=== PATIENT | female | born 1990 | race Caucasian/White ===

== ENCOUNTER 2018-08-24 09:16 | Outpatient (CLI) | payer OTHER ==
--- NOTE | 2018-08-24 10:48 | RAD ---
RIGHT FIFTH DIGIT THREE VIEWS: HISTORY: Pain. Slammed hand in door Wednesday. FINDINGS: Joint spaces are preserved. No fracture. No cortical irregularity or periosteal reaction. No radio paque foreign body or significant soft tissue swelling. IMPRESSION: No posttraumatic change. POS: [facility]
--- NOTE | 2018-08-24 10:51 | RAD ---
RIGHT FOOT THREE VIEWS: HISTORY: Persistent pain. Sprain seven weeks ago. COMPARISON: None. FINDINGS: Lisfranc alignment is maintained. Joint spaces are preserved. No fracture. No cortical irregularit y or periosteal reaction. IMPRESSION: Unremarkable three views right foot. No posttraumatic change. POS: [facility]
== END 2018-08-24 09:17 | disposition home or self-care (01) ==
LOC: SCSRAD 09:16
PROVIDERS: ATTEND Family Medicine
DX: M79.671 Pain in right foot (principal)

== ENCOUNTER 2019-09-22 14:53 | Outpatient (CLI) | payer BC ==
--- NOTE | 2019-09-22 15:36 | RAD ---
LUMBAR SPINE SERIES THREE VIEWS: 09/22/19 HISTORY: Chronic back pain extending down into the legs. Vertebral bodies are normal in height. Disc spaces are all well preserved. Pedicles are intact. No sp ondylolisthesis. IMPRESSION: Unremarkable lumbar spine series. POS: [facility]
--- NOTE | 2019-09-22 15:37 | RAD ---
CERVICAL SPINE SERIES THREE VIEWS: 09/22/19 HISTORY: Chronic neck pain. Vertebral bodies are normal in height. Disc spaces are all well preserved and facets are in normal al ignment. No soft tissue swelling. IMPRESSION: Unremarkable cervical spine series. POS: [facility]
== END 2019-09-22 14:54 | disposition home or self-care (01) ==
LOC: SCSRAD 14:53
PROVIDERS: ATTEND Internal Medicine Rheumatology
DX: M54.2 Cervicalgia (principal); M54.89 Other dorsalgia
CPT/HCPCS: 72040; 72100

== ENCOUNTER 2020-11-07 17:26 | Emergency (ER) | payer BC, OTHER ==
[~2020-11-07 17:26] MED LIST: Iopamidol-370 76% 500 ML 1 ML ONE
[2020-11-07 18:46] LABS: #Basophils 0.1 thou/uL (0.0-0.2); #Eosinphils 0.1 thou/uL (0.0-0.7); #Lymphocytes 2.1 thou/uL (1.20-3.40); #Monocytes 0.5 thou/uL (0.11-0.59); #Neutrophils 2.7 thou/uL (1.40-6.50); %Basophils 1.6 % (0.0-1.0); %Eosinophils 1.9 % (0.0-10.0); %Lymphocytes 38.3 % (21.0-51.0); %Neutrophils 49.2 % (42.0-75.0); Hemoglobin 13.8 g/dL (12.0-16.0); Mean Corpuscular HGB CONC 33.8 g/dL (32.0-36.0); Mean Corpuscular Hemoglobin 29.7 pg (27.0-31.0); Mean Corpuscular Volume 87.8 fL (78.0-98.0); Mean Platelet Volume 9.2 fL (7.4-10.4); Platelet Count 216 thou/uL (130-400); RBC Distribution Width 11.3 % (11.5-14.5); Red Blood Cell (RBC) Count 4.66 mill/uL (4.20-5.40); White Blood Cell (WBC) Count 5.4 thou/uL (4.8-10.8)
[2020-11-07 18:58] LABS: Bacteria/HPF None Seen HPF (None Seen); Bilirubin Negative (Negative); Blood, Urine 2+ (Negative); Clarity Clear (Clear); Glucose, Urine (Dipstick) Normal (Negative); Ketone, Urine Negative (Negative); Leukocyte Negative Leu/uL (Negative); Nitrite Negative (Negative); Protein, Urine (Dipstick) 20 mg/dL (Neg-Trace); RBC/HPF 0-3 HPF (0-3); Specific Gravity, Urine 1.026 (1.002-1.036); Urobilinogen Normal mg/dL (Less than 2); WBC/HPF 0-3 HPF (0-3)
[2020-11-07 18:59] LABS: BHCG - Serum Negative (NEGATIVE); Pregs Control Background? CLEAR/WHITE (CLR/WHITE); Pregs Control Bar Appear? YES (CONTROL BAR)
[2020-11-07 19:05] LABS: ALT (SGPT) 14 U/L (8-55); AST (SGOT) 16 U/L (5-34); Albumin 4.8 g/dL (3.5-5.0); Alkaline Phosphatase 47 U/L (40-110); Anion Gap 12 mmol/L (10-20); BUN (Urea Nitrogen) 9 mg/dL (7.0-18.7); Bilirubin, Total 0.8 mg/dL (0.2-1.2); Calc. Creatinine Clearance 0 mL/min (70-130); Calcium 9.4 mg/dL (7.8-10.44); Carbon Dioxide 30 mmol/L (22-29); Chloride 103 mmol/L (98-107); Globulin 3.1 g/dL (2.4-3.5); Glucose 68 mg/dL (70-105); Lipase 31 U/L (8-78); Potassium 3.6 mmol/L (3.5-5.1); Protein, Total 7.9 g/dL (6.0-8.3); Sodium 141 mmol/L (136-145)
[2020-11-07] MEDS ORDERED: Acetaminophen 500 MG TAB ONE (19:44)
--- NOTE | 2020-11-07 20:07 | CT ---
CT ABDOMEN AND PELVIS WITH IV CONTRAST 11/07/2020 CLINICAL INFORMATION: Right lower quadrant abdominal pain and pelvic pain. Painful urination. COMPARISON: 04/05/2015 Technique: Multiple contiguous axial CT images are obtained through the abdomen and pelvis with IV contrast. Cor onal reformatted images are provided. FINDINGS: Lower Chest: Lung bases are clear. Vessels: Abdominal aorta is normal in caliber. Abdomen: Portal vein:Patent Gallbladder: Within normal limits for CT imaging. Liver: within normal limits. Spleen: within normal limits. Pancreas: within normal limits. Adrenals: within normal limits. Kidneys: within normal limits. Bowel: Normal caliber. Appendix: The appendix is visualized and normal in caliber. Peritoneum: Trace free intraperitoneal fluid is seen in the lower pelvis. No fluid collection is seen . Mesentery and Retroperitoneum: No enlarged mesenteric or retroperitoneal lymph nodes. Abdominal Wall: within normal limits. Pelvis: Reproductive Organs: A T-shaped intrauterine contraceptive device is present in the endometrial canal . A large cystic structure is seen in the central and left aspect of the pelvis likely related to left adnexal cystic lesion with septation. This measures 7.3 cm craniocaudal x8 cm AP x8.3 cm transve rse. Bladder: Mild mass effect on the urinary bladder due to the cystic lesion in the pelvis. Bones: No suspicious lytic or sclerotic osseous lesions. IMPRESSION: 1. Large cystic lesion with suggestion of thin septation in the left hemipelvis. Further evaluation w ith pelvic ultrasound is recommended. 2. No CT evidence of appendicitis. 3. Intrauterine contraceptive device.
--- NOTE | 2020-11-07 21:06 | ULT ---
Exam: Pelvic ultrasound HISTORY: Pelvic pain COMPARISON: CT abdomen and pelvis on 11/07/2020 TECHNIQUE: Multiple grayscale and color Doppler images were obtained in a transabdominal pelvic ultra sound. Spectral analysis of the Doppler waveforms of the ovaries were performed. FINDINGS: CERVIX: Grossly within normal limits. UTERUS: Normal in size without focal abnormality. ENDOMETRIAL STRIPE: 7 mm which is within normal limits for a normal menstruating female patient. The intrauterine contraceptive device is not well delineated on transabdominal imaging. No fluid or fluid collection is seen in the endometrial canal. No free fluid is present. RIGHT OVARY: Normal flow, without focal mass. LEFT OVARY: As noted on CT scan of the abdomen and pelvis, there is a complex cystic lesion in the le ft adnexa, a normal-appearing left ovary is not visualized. There is a predominantly anechoic structure with a complex cystic and solid structure within the larger anechoic structure. The larger anechoic structure measures approximately 7.1 cm x 6.2 cm x 7.8 cm. The mixed cystic and solid appearing structure within the larger cystic structure measures 5.4 cm x 3.9 cm. No definitive flow i s seen within this more complex solid and cystic structure. There is arterial flow seen at the periphery of the large cystic structure likely related to surrounding normal ovarian tissue. IMPRESSION: 1 Complex cystic lesion left adnexa with largest measurement of 7.8 cm. Within the larger cystic anec hoic structure, there is a complex solid and cystic structure seen. This does not have typical appearance for a hemorrhagic cyst. A benign or malignant cystic neoplastic process is a differential consideration. Patient reportedly has a negative test. Gynecological consultation is recommended. 2. Above findings discussed with BELIA Mike in the emergency department on 11/07/2020 at 2103 hours.
[2020-11-07] MEDS ORDERED: Morphine 2 MG/ML VIAL ONE ×2 (21:48→21:58)
[2020-11-07] MEDS ORDERED: Ketorolac Tromethamine 30 MG/ML VIAL ONE ×2 (21:49→21:59)
[2020-11-07] MEDS ORDERED: Ondansetron PF 4 MG/2 ML Vial ONE ×2 (21:49→21:59)
[2020-11-11 21:59] LABS: Chlamydia by PCR Not Detected (NotDetected); GC by PCR Not Detected (NotDetected)
== END 2020-11-07 20:12 | disposition home or self-care (01) ==
LOC: ERS 17:26
DX: N83.202 Unspecified ovarian cyst, left side (principal); F17.210 Nicotine dependence, cigarettes, uncomplicated; Z79.01 Long term (current) use of anticoagulants; Z79.899 Other long term (current) drug therapy
CPT/HCPCS: 36415; 74177; 76856; 80053; 81003; 81015; 83690; 84703; 85025; 87480; 87491; 87510; 87591; 87660; 93976; 96374; 96375; J1885; J2270; J2405; Q9967

== ENCOUNTER 2022-09-17 13:44 | Outpatient (CLI) | payer BC | END 2022-09-17 13:45 | disposition home or self-care (01) | LOC: BICULT 13:44 | PROVIDERS: ATTEND Family Medicine | DX: N63.21 Unspecified lump in the left breast, upper outer quadrant (principal) ==